=== PATIENT | female | born 1945 | race Two or more races ===

== ENCOUNTER 2024-09-01 16:45 | Inpatient (IN) | payer OTHER ==
[~2024-09-01] VITALS: Ht 167.6 cm; Wt 61.7 kg
--- NOTE | 2024-09-01 17:19 | NUR ---
PTE ALERTA Y ORIENTADA X3 QUIEN REFIERE VENIR POR HBP 220/110 MANUAL. ESTA REFIERE IR A ASHLEY DE RUTINA CON DU EN CATES Y LA MISMA RECETARLE TEMPORALMENTE IRBESARTAN 150MG
[2024-09-01] MEDS ORDERED: LABETALOL HCL 100 MG/20 ML ML IV ONE (18:00)
--- NOTE | 2024-09-01 18:03 | NUR ---
MARCELLO FULTON EJECUTA ORDENES MEDICAS EN FISHER TOTALIDAD.
[2024-09-01 18:20] LABS: HEMOGLOBIN 13.7 g/dL (12.0-15.00); MEAN CELL VOLUME 85.8 fL (80.00-100.00); MEAN CORPUSCULAR HEMOGLOBIN 28.8 pg (27.00-32.0); MEAN CORPUSCULAR HGB CONC 33.6 g/dl (32.0-36.0); PLATELET COUNT 300 K/uL (150-450); RED BLOOD COUNT 4.78 M/uL (4.00-6.00); RED CELL DISTRIBUTION WIDTH 14.8 % (11.5-14.5)
[2024-09-01 18:47] LABS: ALBUMIN 3.8 gm/dL (3.4-5.0); BILIRUBIN TOTAL 0.45 mg/dL (0.3-1.2); CALCIUM 9.6 mg/dL (8.5-10.1); CREATININE SERUM 0.94 mg/dL (0.55-1.02); GFR 57.74; GLOBULINA 3.9 G/DL (2.4-3.5); POTASSIUM 3.79 mEq/L (3.5-5.1); TOTAL PROTEIN 7.7 gm/dL (6.4-8.2)
[2024-09-01] MEDS ORDERED: LABETALOL HCL 20MG/4ML SYRINGE IV ONE (19:45)
[2024-09-01] MEDS ORDERED: hydrALAZINE HCL 20 MG VIAL IV ONE (22:00)
[2024-09-01] MEDS ORDERED: CLEVIDIPINE BUTYRATE 100 ML IV SCH ×2 (22:45→23:15)
[2024-09-01] MEDS ORDERED: SODIUM CHLORIDE 0.45 % 1,000 ML IV SCH (23:00)
[2024-09-01] MEDS ORDERED: IRBESARTAN 300 MG TABLET PO SCH (23:06)
[2024-09-01] MEDS ORDERED: ONDANSETRON HCL 4 MG in 0.9 % SODIUM CHLORIDE 50 ML IV PRN (23:15)
[2024-09-01] MEDS ORDERED: ACETAMINOPHEN 500 MG GEL..CAP PO PRN (23:15)
[2024-09-01] MEDS ORDERED: CLONAZEPAM 0.5 MG TABLET PO PRN (23:15)
[2024-09-02] VITALS (17 sets, daily range): BP systolic 115–172; BP diastolic 54–77; O2SAT 97–100
[2024-09-02 05:06] LABS: PH,URINE 5.5 (5.0-8.0); URINE APPEARANCE Clear; URINE BILIRRUBIN Negative (NEGATIVE); URINE BLOOD Negative; URINE COLOR Yellow; URINE GLUCOSE Negative (NEGATIVE); URINE KETONE Negative (NEGATIVE); URINE LEUKOCYTE Negative; URINE NITRATE Negative; URINE PROTEIN Negative (NEGATIVE); URINE UROBILINOGEN 0.2 E.U./dl
[2024-09-02 05:07] LABS: ERYTHROCYTE SEDIMENTATION RATE 11 mm/hr; HEMATOCRIT 42.1 % (36.0-45.00); HEMOGLOBIN 13.9 g/dL (12.0-15.00); MEAN CELL VOLUME 86.9 fL (80.00-100.00); MEAN CORPUSCULAR HEMOGLOBIN 28.8 pg (27.00-32.0); MEAN CORPUSCULAR HGB CONC 33.1 g/dl (32.0-36.0); PLATELET COUNT 304 K/uL (150-450); RED BLOOD COUNT 4.84 M/uL (4.00-6.00); RED CELL DISTRIBUTION WIDTH 14.3 % (11.5-14.5)
[2024-09-02 05:10] LABS: URINE BACTERIA 13.4 uL (0.0-1933); URINE EPITHELIAL CELLS 2.8 uL (0.0-38.8); URINE RBC 1.3 uL (0.0-20.8); URINE WBC 5.5 uL (0.0-23.2)
[2024-09-02 05:25] LABS: INR 1.02; PARTIAL THROMBOPLASTIN TIME 26.8 SECONDS (22.0-34.0); PROTHROMBIN TIME 11.1 SECONDS (9.0-11.5)
[2024-09-02 05:37] LABS: ALBUMIN 3.9 gm/dL (3.4-5.0); BILIRUBIN TOTAL 0.9 mg/dL (0.3-1.2); BILIRUBIN,CONJUGATED 0.2 mg/dL (0.0-0.2); BILIRUBIN,UNCONJUGATED 0.7 mg/dL (0.0-0.6); CALCIUM 9.3 mg/dL (8.5-10.1); CHOL HDL RATIO 3.5 (0-5.0); CREATININE SERUM 0.75 mg/dL (0.55-1.02); GFR 74.93; GLOBULINA 3.3 G/DL (2.4-3.5); POTASSIUM 3.9 mEq/L (3.5-5.1); TOTAL PROTEIN 7.2 gm/dL (6.4-8.2); TSH 3.59 uIU/mL (0.358-3.74)
[2024-09-02] MEDS ORDERED: FAMOTIDINE/PF 20 MG in 0.9 % SODIUM CHLORIDE 8 ML IV PUSH SCH (09:00)
[2024-09-02] MEDS ORDERED: ATORVASTATIN CALCIUM 40 MG TABLET PO SCH (09:00)
[2024-09-02] MEDS ORDERED: HYDROCHLOROTHIAZIDE 25 MG TABLET PO SCH (10:44)
[2024-09-02 13:38] LABS: PHOSPHOKINASE CREATININE 92 U/L (26-192)
[2024-09-02] MEDS ORDERED: DOXAZOSIN MESYLATE 2 MG TABLET PO SCH (17:00)
[2024-09-02] MEDS ORDERED: ATORVASTATIN CALCIUM 20 MG TABLET PO SCH (17:00)
[2024-09-02 17:18] LABS: CKMB < 1.0 NG/ML (0.5-3.6)
[2024-09-03] VITALS (7 sets, daily range): BP systolic 107–181; BP diastolic 50–82; O2SAT 98–100
[2024-09-03] MEDS ORDERED: NIFEDIPINE 30 MG TAB.SA.OSM PO NR (13:00)
[2024-09-03] MEDS ORDERED: NIFEDIPINE 30 MG TAB.SA.OSM PO STA (18:04)
[2024-09-03] MEDS ORDERED: DOXAZOSIN MESYLATE 4 MG TABLET PO NR (18:15)
[2024-09-03] MEDS ORDERED: hydrALAZINE HCL 20 MG VIAL IV PRN (18:15)
[2024-09-03] MEDS ORDERED: CARVEDILOL 6.25 MG TABLET PO SCH (21:00)
[2024-09-04 00:30] VITALS: BP 159/63; O2SAT 99
[2024-09-04 04:54] LABS: HEMATOCRIT 38.1 % (36.0-45.00); HEMOGLOBIN 13.1 g/dL (12.0-15.00); MEAN CELL VOLUME 84.8 fL (80.00-100.00); MEAN CORPUSCULAR HEMOGLOBIN 29.1 pg (27.00-32.0); MEAN CORPUSCULAR HGB CONC 34.3 g/dl (32.0-36.0); PLATELET COUNT 276 K/uL (150-450); RED CELL DISTRIBUTION WIDTH 14.7 % (11.5-14.5)
[2024-09-04 05:16] LABS: ALBUMIN 3.2 gm/dL (3.4-5.0); BILIRUBIN TOTAL 0.72 mg/dL (0.3-1.2); CALCIUM 9.4 mg/dL (8.5-10.1); CREATININE SERUM 1.09 mg/dL (0.55-1.02); GFR 48.67; POTASSIUM 4.2 mEq/L (3.5-5.1); TOTAL PROTEIN 6.2 gm/dL (6.4-8.2)
[2024-09-04 07:57] VITALS: BP 158/69
[2024-09-04] MEDS ORDERED: NIFEDIPINE 30 MG TAB.SA.OSM PO SCH (09:00)
[2024-09-04] MEDS ORDERED: NIFEDIPINE 60 MG TAB.SA.OSM PO SCH (09:00)
[2024-09-04] MEDS ORDERED: RINGERS SOLUTION,LACTATED 1,000 ML IV SCH (11:30)
[2024-09-04 16:45] VITALS: BP 171/78
[2024-09-04] MEDS ORDERED: DOXAZOSIN MESYLATE 4 MG TABLET PO SCH (17:00)
[2024-09-04] MEDS ORDERED: CARVEDILOL 12.5 MG TABLET PO SCH (21:00)
[2024-09-04] MEDS ORDERED: CARVEDILOL 6.25 MG TABLET PO SCH (21:00)
[2024-09-05 00:37] VITALS: BP 139/72; O2SAT 94
[2024-09-05 08:27] VITALS: BP 152/71; O2SAT 99
[2024-09-05] MEDS ORDERED: LIPITOR40 M1 PO (11:50)
[2024-09-05] MEDS ORDERED: HYDROCHLOROTHIA25 MG PO (11:51)
[2024-09-05] MEDS ORDERED: CARVEDILOL12.5 MG PO (11:51)
[2024-09-05] MEDS ORDERED: DOXAZOSIN MESYLA4 MG PO (11:51)
[2024-09-05] MEDS ORDERED: AVAPRO300 MG PO (11:51)
== END 2024-09-05 13:49 | disposition home or self-care (01) | DRG 683 ==
LOC: ER 16:48 → ICU 23:20 → ICU-2 23:20 → ICU 09-02 05:03 → MEDI 09-03 14:11
PROVIDERS: Emergency Medicine; General Practice; ADMIT Internal Medicine; ATTEND Internal Medicine
PROC: 4A12X4Z Monitoring of Cardiac Electrical Activity, External Approach (ICD-10-PCS; principal; 2024-09-01)
PROC: B246ZZZ Ultrasonography of Right and Left Heart (ICD-10-PCS; 2024-09-01)
DX: I12.9 Hypertensive chronic kidney disease with stage 1 through stage 4 chronic kidney disease, or unspecified chronic kidney disease (principal); N17.9 Acute kidney failure, unspecified; I16.0 Hypertensive urgency; N18.9 Chronic kidney disease, unspecified; Z88.1 Allergy status to other antibiotic agents